=== PATIENT | male | born 1990 | race African-American/Black ===

== ENCOUNTER 2021-07-14 18:28 | Emergency (ER) | payer SELFPAY | END 2021-07-14 20:05 | disposition home or self-care (01) | LOC: CSHERS 18:28 | DX: B34.9 Viral infection, unspecified (principal); F17.210 Nicotine dependence, cigarettes, uncomplicated | CPT/HCPCS: 99283 ==

== ENCOUNTER 2021-08-12 11:39 | Emergency (ER) | payer SELFPAY ==
[2021-08-12] MEDS ORDERED: Ibuprofen 200 MG TAB ONE (13:42)
== END 2021-08-12 13:54 | disposition home or self-care (01) ==
LOC: CSHERS 11:39
DX: S62.634A Displaced fracture of distal phalanx of right ring finger, initial encounter for closed fracture (principal); S56.408A Unspecified injury of extensor muscle, fascia and tendon of left little finger at forearm level, initial encounter; F17.210 Nicotine dependence, cigarettes, uncomplicated; X58.XXXA Exposure to other specified factors, initial encounter